=== PATIENT | female | born 1945 | race American Indian/Alaskan Native ===

== ENCOUNTER 2017-04-25 09:28 | Outpatient (CLI) | payer MEDICARE ==
--- NOTE | 2017-04-26 08:31 | Mammography Report ---
BILATERAL DIGITAL SCREENING MAMMOGRAM with CAD: 04/25/17 09:28:00 CLINICAL: Routine screening. COMPARISON:04/24/16 FINDINGS: The breasts are mostly fatty with bilateral residual heterogeneously dense retroareolar fibroglandular densities. No mass, architectural distortion or suspicious calcifications. IMPRESSION: No mammographic evidence of malignancy. BI-RADS CATEGORY: 1 - - Negative RECOMMENDATION: Routine mammographic screening in one year. COMMENT: Patient follow-up letters are generated by our [employer] application.
== END 2017-04-25 09:29 | disposition home or self-care (01) ==
LOC: MAMMO 09:28
PROVIDERS: ATTEND Nurse Practitioner Family
DX: Z12.31 Encounter for screening mammogram for malignant neoplasm of breast (principal)
CPT/HCPCS: 77067; G0202

== ENCOUNTER 2019-05-01 10:24 | Outpatient (CLI) | payer MEDICARE ==
--- NOTE | 2019-05-04 14:09 | Mammography Report ---
DIGITAL SCREENING MAMMOGRAM WITH CAD, 05/01/2019 INDICATION: Routine screening mammography. TECHNIQUE: Digital bilateral 2D mammography was obtained in the craniocaudal and mediolateral obliq ue projections. This examination was interpreted with the benefit of Computer-Aided Detection analysi s. COMPARISON: 04/28/2018 FINDINGS: Breast Density: The breasts are heterogeneously dense, which may obscure small masses. There is no evidence of dominant mass, suspicious calcifications or architectural distortion in eithe r breast. IMPRESSION: No mammographic evidence of malignancy. Follow up recommendation: Routine yearly BI-RADS Category 2: Benign. A "normal" or negative report should not discourage follow up or biopsy of a clinically significant f inding. A written summary of these findings will be mailed to the patient. The patient will be entered into a mammography reporting system which will generate a reminder letter for the patient's next appointmen t at the appropriate interval. The [employer] recommends yearly mammograms starting at age 40 and continuing as l maira as a woman is in good health. Breast MRI is recommended for women with an approximate 20-25% or greater lifetime risk of breast cancer, including women with a strong family history of breast or ova eugenio cancer or who have been treated for Hodgkin's disease. Signer Name: Ronnell Mejias MD Signed: 05/04/2019 2:04 PM Workstation Name: [id number]
== END 2019-05-01 10:25 | disposition home or self-care (01) ==
LOC: MAMMO 10:24
PROVIDERS: ATTEND Nurse Practitioner Family
DX: Z12.31 Encounter for screening mammogram for malignant neoplasm of breast (principal)
CPT/HCPCS: 77067